=== PATIENT | male | born 1995 | race Caucasian/White ===

== ENCOUNTER 2018-01-12 13:23 | Emergency (ER) | payer BC ==
[~2018-01-12] VITALS: Ht 193 cm; Wt 112.0 kg
[2018-01-12 13:38] VITALS: TEMP 37.1; Ht 193 cm; Wt 112.0 kg
[2018-01-12] MEDS ORDERED: LORA-741 PO (14:12)
[2018-01-12] MEDS ORDERED: SERT50TA PO (14:12)
[2018-01-12 14:18] LABS: HEMATOCRIT 44.2 % (42-52); HEMOGLOBIN 15.1 g/dL (14.0-18.0); MEAN CELL VOLUME 87.9 fL (80-100); MEAN CORPUSCULAR HGB CONC 34.2 g/dl (32-36); MEAN PLATELET VOLUME 11.8 fL (7.4-10.4); PLATELET COUNT 169 K/uL (130-400); RED CELL DISTRIBUTION WIDTH CV 13.1 % (11.5-14.5); RED CELL DISTRIBUTION WIDTH SD 41.7 fL (36.4-46.3)
[2018-01-12 14:44] LABS: ALBUMIN 4.2 gm/dl (3.4-5.0); CALCIUM 9.1 mg/dl (8.5-10.1); CREATININE 1.27 mg/dl (0.60-1.40); POTASSIUM 3.7 mmol/L (3.5-5.1)
--- NOTE | 2018-01-12 14:50 | DIAGNOSTIC IMAGING REPORT ---
HEAD WITHOUT CONTRAST (CT) CLINICAL HISTORY: 22 years-old Male presenting with LIPSCOMB, eval for mass/bleed. TECHNIQUE: Multidetector CT imaging of the head was performed without the use of intravenous contrast. IV contrast: None. A dose lowering technique was used consistent with the principles of ALARA (as low as reasonably achievable). COMPARISON: None. CT DOSE (mGy.cm): The estimated cumulative dose is 638.84 mGy.cm. FINDINGS: Global Product Manager topogram: Unremarkable. Ventricles and sulci normal in size. Brain parenchyma normal in appearance with preserved rivera-white differentiation. No mass effect or midline shift. No hemorrhage or acute territorial infarct. No extra-axial fluid collection. Paranasal sinuses and mastoid air cells clear. Calvarium intact. IMPRESSION: 1. No acute intracranial abnormality. Electronically signed by: Andrew Brown M.D. 01/12/2018 2:48 PM Dictated Date/Time: 01/12/2018 2:46 PM
[2018-01-12 14:55] LABS: TOTAL PROTEIN 8.4 gm/dl (6.4-8.2)
[2018-01-12] MEDS ORDERED: SERTRALINE HCL 100 MG TAB PO STA (17:00)
[2018-01-12] MEDS ORDERED: SERTRALINE HCL 50 MG TAB ONE (17:25)
[2018-01-12 18:13] VITALS: BP 127/72; PULSE 71; O2SAT 99
--- NOTE | 2018-01-12 19:27 | EMERGENCY ROOM VISIT NOTE ---
History Report prepared by Delio: Keron Sigala Under the Supervision of: Dr. Sebastian Dietrich M.D. First contact with patient: 13:36 Chief Complaint: MENTAL HEALTH EVALUATION Stated Complaint: SEVERE ANXIETY History of Present Illness The patient is a 22 year old male who presents to the Emergency Room for a mental health evaluation due to persistent severe anxiety for the past 4-5 days. The patient states that he felt like he has been having a panic attack for the past 4 days. He additionally states that he feels like he has a ' thickness and heaviness" in his head, and he states that it has been leading to having a headache sometimes, and it feels like "torture". He states that he has a history of anxiety. He was recently put back on Zoloft for his anxiety. He was also given Ativan to take as needed. The patient states that he was at [facility] today, and they sent him here for evaluation due to the headaches and his severe anxiety. The patient denies any thoughts of hurting himself or anyone else. He additionally denies any fever or vomiting, though he states that he is occasionally nauseous, and he states that he is feeling palpitations. The patient does not have any other medical problems. Per the psychiatric caser, the patient was seen at [facility], and they told her that the patient was having suicidal ideations and thoughts of hurting others. They think that it is a possible reaction to the Zoloft. Source of History: patient, other (caser) Onset: 4-5 days ago Position: other (global) Symptom Intensity: severe Quality: other (anxiety) Timing: other (persistent ) Associated Symptoms: + headache, + nausea, No fevers, No vomiting Note: Associated symptoms: Palpitations Review of Systems See HPI for pertinent positives & negatives. A total of 10 systems reviewed and were otherwise negative. Past Medical & Surgical Medical Problems: (1) Anxiety Family History Heart block Social History Smoking Status: Never Smoker Housing Status: lives with roommate Occupation Status: [employer] student Current/Historical Medications Scheduled Sertraline (Zoloft), 50 MG PO DAILY Scheduled PRN Lorazepam (Ativan), 0.5 MG PO Q6H PRN for Anxiety Allergies Coded Allergies: No Known Allergies (Unverified , 01/12/18) Physical Exam Vital Signs Date Time Temp Pulse Resp B/P (MAP) Pulse Ox O2 Delivery O2 Flow Rate FiO2 01/12/18 18:13 71 20 127/72 99 01/12/18 17:20 63 20 127/75 100 Room Air 01/12/18 13:38 37.1 67 18 155/84 96 Room Air Physical Exam Constitutional: Vital signs reviewed. Eyes: Pupils are equal round reactive to light. Conjunctiva are noninjected. ENT: Pharynx is clear without erythema or exudate. Mucous membranes are moist. Neck supple without meningeal signs. Respiratory: Clear to auscultation bilaterally. Breath sounds are equal bilaterally. Cardiovascular: Regular rate and rhythm. No rubs or gallops. GI: Soft, nondistended and nontender. Bowel sounds are present. Musculoskeletal: No peripheral edema. No lower extremity tenderness. Integumentary: No cyanosis. Neurological: The patient is awake and alert. Cranial nerves II-XII are intact. Motor is 5 out of 5 all extremities. Sensation is intact to light touch all extremities. Normal speech. No pronator drift. Psychiatric: Anxious. Medical Decision & Procedures ER Provider Diagnostic Interpretation: Radiology results as stated below per my review and the radiologist's interpretation: HEAD WITHOUT CONTRAST (CT) CLINICAL HISTORY: 22 years-old Male presenting with LIPSCOMB, eval for mass/bleed. TECHNIQUE: Multidetector CT imaging of the head was performed without the use of intravenous contrast. IV contrast: None. A dose lowering technique was used consistent with the principles of ALARA (as low as reasonably achievable). COMPARISON: None. CT DOSE (mGy.cm): The estimated cumulative dose is 638.84 mGy.cm. FINDINGS: Manager Instrumentation topogram: Unremarkable. Ventricles and sulci normal in size. Brain parenchyma normal in appearance with preserved rivera-white differentiation. No mass effect or midline shift. No hemorrhage or acute territorial infarct. No extra-axial fluid collection. Paranasal sinuses and mastoid air cells clear. Calvarium intact. IMPRESSION: 1. No acute intracranial abnormality. Electronically signed by: Andrew Brown M.D. 01/12/2018 2:48 PM Dictated Date/Time: 01/12/2018 2:46 PM Laboratory Results 01/12/18 13:59 01/12/18 13:59 Test 01/12/18 13:59 01/12/18 14:00 Red Blood Count 5.03 M/uL (4.7-6.1) Mean Corpuscular Volume 87.9 fL (80-100) Mean Corpuscular Hemoglobin 30.0 pg (25-34) Mean Corpuscular Hemoglobin Concent 34.2 g/dl (32-36) RDW Standard Deviation 41.7 fL (36.4-46.3) RDW Coefficient of Variation 13.1 % (11.5-14.5) Mean Platelet Volume 11.8 fL (7.4-10.4) Anion Gap 10.0 mmol/L (3-11) Est Creatinine Clear Calc Drug Dose 125.0 ml/min Estimated GFR () 92.3 Estimated GFR (Non- 79.7 BUN/Creatinine Ratio 13.9 (10-20) Calcium Level 9.1 mg/dl (8.5-10.1) Total Bilirubin 0.8 mg/dl (0.2-1) Direct Bilirubin 0.2 mg/dl (0-0.2) Aspartate Amino Transf (AST/SGOT) 20 U/L (15-37) Alanine Aminotransferase (ALT/SGPT) 38 U/L (12-78) Alkaline Phosphatase 66 U/L (45-117) Total Protein 8.4 gm/dl (6.4-8.2) Albumin 4.2 gm/dl (3.4-5.0) Thyroid Stimulating Hormone (TSH) 1.340 uIu/ml (0.300-4.500) Salicylates Level < 1.7 mg/dl (2.8-20) Acetaminophen Level < 2 ug/ml (10-30) Ethyl Alcohol mg/dL < 3.0 mg/dl (0-3) Urine Opiates Screen NEG (NEG) Urine Methadone, Qualitative NEG (NEG) Urine Barbiturates NEG (NEG) Urine Phencyclidine (PCP) Level NEG (NEG) Ur Amphetamine/Methamphetamine NEG (NEG) MDMA (Ecstasy) Screen NEG (NEG) Urine Benzodiazepines Screen NEG (NEG) Urine Cocaine Metabolite NEG (NEG) Urine Marijuana (THC) NEG (NEG) Laboratory results as reviewed by me. Medications Administered Medications (Trade) Dose Ordered Sig/Carlos Alberto Route Start Time Stop Time Status Last Admin Dose Admin Sertraline HCl (Zoloft Tab) 50 mg STK-MED ONCE .ROUTE 01/12/18 17:25 01/12/18 17:26 DC 2/15/18 17:27 50 MG ECG Per My Interpretation Indication: palpitations Rate (beats per minute): 61 Rhythm: sinus rhythm Findings: other (No ST elevations. No prolongation of QT interval. No pre excitation) ED Course 1336: The patient was evaluated in room A8. A complete history and physical exam was performed. 1524 I reevaluated the patient, and I let him know the results. He is waiting for a mental health evaluation. 1659: I talked to the patient and his parents, and I discussed the test results with them. They were frustrated that we could not offer more, and they asked about a psychiatrist admission nurse. I offered to call them, but I explained that it is unlikely that they will come down emergently for counselling services, so they said to not bother to call. The family states that the patient was just restarted on Zoloft a few days ago and Ativan to bridge her anxiety. The patient is requesting Zoloft since he has not taken it. 1710: I reevaluated the patient, and he states that with his panic attacks he sometimes gets these palpitations, and he states that sometimes his heart feels like it slows down, and he cant feel his pulse, though he is unsure if it actually slows down. He states that he does not get light headed or pass out. His father notes that he has a history of heart bloc, and the patients uncle has recently needed a pacemaker. I discussed the EKG with the family, and they are going to follow up with the patients PCP. They additionally note that the patient had similar palpitations his [employer] year of High School, and they are unsure of the results of the EKG back then. 1725: Zoloft 50mg PO Medical Decision This is a 22-year-old male presents with headache and mental health evaluation. I did perform a limited focused review of portions of the patient's old chart on the electronic medical record. The patient has had no prior visits. I did evaluate the patient as noted above. The patient is having anxiety attacks. He has had them for years but they are worse recently and he developed a pressure in his head which leads to headaches. He was sent by his counselor to rule out an organic cause of his headache and was told to get a CT scan here. I did order and review the patient's blood work as noted in the electronic medical record. CBC is normal. Electrolytes and TFTs are unremarkable. I did order a CT of the head. I did review the images myself as well as the radiology report as described above. There is no evidence of acute intracranial abnormality. I did discuss the test results with the patient. He was just recently started on Zoloft and is also taking Ativan as needed. I did not feel adjustment of his medications was indicated given he just restarted his meds. His parents arrived and requested an EKG. His father states that he has a history of heart block and his uncle also has a history of a pacemaker. The patient states that he has had palpitations with his panic attacks. Often his heart rate is very fast but other times he states that he is not sure if it is slow. He does not feel any lightheadedness or syncope. I did order and personally review the patient's 12-lead EKG as described above. He does have a first-degree AV block. His parents state that he had a history of palpitations in high school with a negative workup at that time. I did recommend a follow- up closely with his doctor for further evaluation of this heart block. He was given his dose of Zoloft here. He was advised to follow-up closely with his counselor and continue with his medications as prescribed. Medication Reconcilliation Current Medication List: was personally reviewed by me Blood Pressure Screening Patient's blood pressure: Elevated blood pressure Blood pressure disposition: Elevated BP felt to be situational Impression Primary Impression: Anxiety Additional Impressions: Head ache First degree AV block Scribe Attestation The scribe's documentation has been prepared under my direct and personally reviewed by me in its entirety. I confirm that the note above accurately reflects all work, treatment, procedures, and medical decision making performed by me. Departure Information Dispostion Home / Self-Care Forms HOME CARE DOCUMENTATION FORM, IMPORTANT VISIT INFORMATION Patient Instructions Anxiety Disorder, Headache Pain, Heart Block 1st Degree, [facility] Additional Instructions You have been examined and treated today on an emergency basis only. This is not a substitute for, or an effort to provide, complete comprehensive medical care. It is impossible to recognize and treat all injuries or illnesses in a single emergency department visit. It is therefore important that you follow up closely with your physician. Call as soon as possible for an appointment. Return for worsening symptoms or if you develop fever, vomiting, chest discomfort, lightheadedness or feeling like you are going to pass out, thoughts of hurting yourself or others, or any other concerning symptoms. Problem Qualifiers Additional Impressions: Head ache Headache type: unspecified Headache chronicity pattern: acute headache Intractability: not intractable Qualified Codes: R51 - Headache
== END 2018-01-12 18:15 | disposition home or self-care (01) ==
LOC: C.EDB 13:25 → C.EDA 18:15
DX: F41.9 Anxiety disorder, unspecified (principal); R51 Headache; I44.0 Atrioventricular block, first degree